=== PATIENT | male | born 1965 | race Caucasian/White ===

== ENCOUNTER → 2017-11-04 13:52 | Outpatient (CLI) | payer MEDICAID, SELFPAY ==
--- NOTE | 2017-11-04 14:00 | XR_ITS ---
EXAM: XR lumbar spine min 4V HISTORY: ITS.REASON: BACK PAIN ORDERING PHYSICIAN: Live Singer MD PATIENT AGE: 52 years COMPARISON: None FINDINGS: Normal alignment. No fracture or dislocation. No lytic or blastic change. There is mild degenerative disc disease at L5-S1. Small endplate osteophytes are present at every level. Degenerative disc disease is also present in the lower thoracic spine. IMPRESSION: Lower thoracic and lumbosacral degenerative disc disease
--- NOTE | 2017-11-04 14:00 | XR_ITS ---
EXAM: XR thoracic spine 3V HISTORY: ITS.REASON: BACK PAIN Comparison: None FINDINGS: There is mild degenerative disc disease in the mid and lower thoracic spine. Endplate osteophytes are present. No fracture or dislocation. No lytic or blastic change. There is slight decrease in height T7 vertebral body stable from 6-14. IMPRESSION: No acute finding. Thoracic spondylosis with degenerative disc disease and small endplate BI-RADS
== END ==
PROVIDERS: PCP Family Medicine; Visit Provider Family Medicine
DX: M54.5 Low back pain (principal); M54.6 Pain in thoracic spine
CPT/HCPCS: 72072; 72110

== ENCOUNTER → 2017-11-12 08:42 | Outpatient (CLI) | payer MEDICAID, SELFPAY ==
[2017-11-12 09:17] LABS: Hemoglobin A1C 6.2 % (0.0-7.0)
[2017-11-12 10:50] LABS: Alanine Aminotransferase 28 U/L (12-78); Albumin Level 3.8 gm/dL (3.4-5.0); Albumin/Globulin Ratio 1.1 (1.1-1.8); Alkaline Phosphatase 69 U/L (46-116); Anion Gap 12.3 mEq/L (5-15); Aspartate Amino Transferase 19 U/L (15-37); Bilirubin,Total 0.3 mg/dL (0.2-1.0); Blood Urea Nitrogen 19 mg/dL (7-18); Calcium 9.1 mg/dL (8.5-10.1); Carbon Dioxide 27 mmol/L (21.0-32.0); Chloride 110 mmol/L (98-107); Chol/HDL Ratio 4.8 (1-3.5); Cholesterol 184 mg/dL (140-200); Creatinine,Serum 1.05 mg/dL (0.70-1.30); Estimated Glomerular Filt Rate 74 ml/min (>60); GFR (African American) 89 ML/MIN (>60); Globulin 3.6 gm/dl (1.3-3.2); Glucose 112 mg/dL (74-106); HDL Cholesterol 38 mg/dL (27-67); LDL Cholesterol 108 mg/dL (0-130); Potassium 5.3 mmoL/L (3.5-5.1); Sodium 144 mmol/L (136-145); Total Protein,Serum 7.4 gm/dL (6.4-8.2); Triglycerides 192 mg/dL (30-200); VLDL Cholesterol 38 mg/dL (0-40)
== END ==
PROVIDERS: Visit Provider Family Medicine
DX: E11.9 Type 2 diabetes mellitus without complications (principal); R82.2 Biliuria
CPT/HCPCS: 36415; 80053; 80061; 83036

== ENCOUNTER → 2018-06-17 10:17 | Outpatient (CLI) | payer MEDICAID, SELFPAY ==
[2018-06-17 12:33] LABS: Alanine Aminotransferase 30 U/L (12-78); Albumin Level 3.9 gm/dL (3.4-5.0); Albumin/Globulin Ratio 1.1 (1.1-1.8); Alkaline Phosphatase 65 U/L (46-116); Anion Gap 15.2 mEq/L (5-15); Aspartate Amino Transferase 18 U/L (15-37); Bilirubin,Total 0.5 mg/dL (0.2-1.0); Blood Urea Nitrogen 24 mg/dL (7-18); Carbon Dioxide 26 mmol/L (21.0-32.0); Chloride 103 mmol/L (98-107); Chol/HDL Ratio 4.7 (1-3.5); Cholesterol 204 mg/dL (140-200); Creatinine,Serum 0.99 mg/dL (0.70-1.30); Estimated Glomerular Filt Rate 79 ml/min (>60); GFR (African American) 96 ML/MIN (>60); Globulin 3.7 gm/dl (1.3-3.2); Glucose 100 mg/dL (74-106); HDL Cholesterol 43 mg/dL (27-67); LDL Cholesterol 130 mg/dL (0-130); Potassium 4.2 mmoL/L (3.5-5.1); Sodium 140 mmol/L (136-145); Total Protein,Serum 7.6 gm/dL (6.4-8.2); Triglycerides 154 mg/dL (30-200); VLDL Cholesterol 31 mg/dL (0-40)
[2018-06-17 14:25] LABS: Hemoglobin A1C 6.4 % (0.0-7.0)
== END ==
PROVIDERS: Visit Provider Family Medicine
DX: E11.9 Type 2 diabetes mellitus without complications (principal); I10 Essential (primary) hypertension
CPT/HCPCS: 36415; 80053; 80061; 83036

== ENCOUNTER 2020-06-13 11:48 | Emergency (ER) | payer OTHER, SELFPAY ==
[2020-06-13 11:49] VITALS: BP 153/103; PULSE 95; RESP 20; TEMP 37; O2SAT 98; BMI 39.1
--- NOTE | 2020-06-13 11:58 | XR_ITS ---
PROCEDURE: XR SHOULDER LT MIN 2V CLINICAL INDICATION: fell this morning Posttraumatic pain COMPARISON: No exams were available for comparison FINDINGS: Osteoarthritic changes are present at the acromioclavicular joint and glenohumeral joint. Hypertrophic changes are present at the greater tuberosity. No acute fracture or dislocation. Other findings:There is subacromial stenosis. IMPRESSION: Degenerative changes with subacromial stenosis Dictated by: Phill Garcia MD 06/13/2020 15:32 Phill Garcia MD in [facility] 06/13/2020 15:32
--- NOTE | 2020-06-13 11:59 | HMH.EDUPEXT ---
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 The time I documented below is in addition to time spent performing reported procedures but includes the following listed in this critical care notation. Medical Decision Making - Medical Records Medical records reviewed: Yes: I reviewed the patient's medical records. - Lavell Inquiry Pt receiving controlled substance: No Vital Signs: 06/13/20 11:49 Temperature 98.6 F Temperature Source Oral Pulse Rate [Left Radial] 95 H Respiratory Rate 20 Blood Pressure [Right Arm] 153/103 H Blood Pressure Mean [Right Arm] 119 Blood Pressure Source [Right Arm] Automatic Cuff Blood Pressure Position [Right Arm] Sitting 02 Sat by Pulse Oximetry 98 Oxygen Delivery Method Room Air Orders (Tests/Meds): ORDERS Category Date Time Status Shoulder XR left minimum 2 views [XR shoulder LT min 2V Exams 06/13/20 11:58 Taken ] Stat - Radiology Data #1 Image(s): Shoulder Image Reviewed: Yes I reviewed the patient's radiology results, Yes I reviewed the patient's radiology image Preliminary Findings: Normal/NAD Arthritis, no acute fracture Medical Decision Narrative: Patient is neurovascularly intact in the left upper extremity. X-ray shows arthritis, no acute fracture or dislocation. Recommended anti-inflammatories and follow-up with PCP in 2 to 3 days for reevaluation. Upper Extremity HPI - General Chief Complaint: Extremity Injury, Upper Stated Complaint: A/o 06/13 left shoulder injury Time Seen by Provider: 06/13/20 11:59 Mode of Arrival: Ambulatory Source of Information: Patient Limitations: No Limitations Description of Symptoms (Recalled from ER Triage Doc. by RN): c/o left arm pain after a fall this morning on the ice. Denies any other injuries at this time. - History of Present Illness HPI narrative: This is a 54-year-old [id number] male who presents to the emergency department for evaluation of left shoulder pain near the AC joint. He started feeling this pain about a month and a half ago after moving a piece of furniture, but states it became worse today when he slipped on some ice and fell backwards striking his shoulder on the ice. No other injuries from the fall and no head injury. The pain radiates from the tip of the left shoulder up towards his neck. No numbness, tingling, weakness distally. No elbow, forearm, wrist pain. Any movement makes the pain worse. He took some Tylenol at home which has helped somewhat. - Related Data Home Medications Medication Instructions Recorded Confirmed Fexofenadine HCl [Virgen Allergy] 60 mg PO DAILY 11/03/17 11/03/17 Montelukast Sodium [Montelukast 10 mg PO HS 11/03/17 11/03/17 10mg Tab] lisinopriL [Lisinopril 20mg Tab] 20 mg PO DAILY 11/03/17 11/03/17 Allergies Allergy/AdvReac Type Severity Reaction Status Date / Time No Known Allergies Allergy Verified 11/03/17 15:07 [facility] History - Hepatitis A Screen Drug use history?: No High risk sexual behaviors?: No History of sexually transmitted infection?: No Currently employed?: No Childcare worker?: No Do you have indoor plumbing?: Yes Do you have electricity?: Yes Attestation statement:: This patient has been screened for Hepatitis A risk factors. I have reviewed the patient's past m
[2020-06-13 12:54] VITALS: BP 149/98; PULSE 94; RESP 20; TEMP 37; O2SAT 98
== END 2020-06-13 12:59 | disposition home or self-care (01) ==
PROVIDERS: Emergency Provider Emergency Medicine; PCP Family Medicine
DX: M25.512 Pain in left shoulder (principal); M19.012 Primary osteoarthritis, left shoulder; W00.0XXA Fall on same level due to ice and snow, initial encounter; Y92.019 Unspecified place in single-family (private) house as the place of occurrence of the external cause; I10 Essential (primary) hypertension
CPT/HCPCS: 73030; 99282

== ENCOUNTER → 2020-07-25 12:32 | Outpatient (CLI) | payer OTHER, SELFPAY | PROVIDERS: PCP Family Medicine; Visit Provider Family Medicine | DX: M25.512 Pain in left shoulder (principal) ==

== ENCOUNTER 2021-04-26 04:55 | Emergency (ER) | payer OTHER, SELFPAY ==
[2021-04-26 04:56] VITALS: BP 113/68; PULSE 106; RESP 18; TEMP 37.3; O2SAT 96; BMI 38.3
--- NOTE | 2021-04-26 05:03 | XR_ITS ---
PROCEDURE INFORMATION: Exam: XR Chest Exam date and time: 04/26/2021 5:03 AM Age: 55 years old Clinical indication: Cough TECHNIQUE: Imaging protocol: XR of the chest. Views: 2 views. COMPARISON: CR CXR2V XR chest 2V 11/03/2017 3:16 PM FINDINGS: Lungs: Central opacities with peribronchial cuffing, seen to advantage on the lateral chest radiograph suggest viral process versus reactive airways without convincing consolidation. Pleural spaces: Unremarkable. No pleural effusion. No pneumothorax. Heart/Mediastinum: Unremarkable. No cardiomegaly. Bones/joints: Unremarkable. IMPRESSION: Central opacities with peribronchial cuffing, seen to advantage on the lateral chest radiograph suggest viral process versus reactive airways without convincing consolidation.
[2021-04-26 05:09] LABS: Influenza A, PCR Not Detected (NotDetected); Influenza B, PCR Not Detected (NotDetected)
[2021-04-26 05:24] LABS: Basophils # 0.1 K/mm3 (0-0.2); Basophils % 1.4 % (0.1-2.0); Eosinophils # 0.1 K/mm3 (0.0-0.4); Eosinophils % 0.5 % (0.1-12.0); Hematocrit 40.1 % (42.0-52.0); Hemoglobin 12.8 g/dL (14.1-18.0); Lymphocytes # 1.3 K/mm3 (0.7-4.5); Lymphocytes % 14.1 % (10-50); Mean Corpuscular HGB Conc 32.1 g/dL (31.8-35.4); Mean Corpuscular Hemoglobin 28.7 pg (27.0-31.2); Mean Corpuscular Volume 89.4 fl (80-94); Mean Platelet Volume 8.1 fl (7.4-10.4); Monocytes # 1.2 K/mm3 (0.1-1.0); Monocytes % 12.7 % (1.7-9.3); Neutrophils # 6.8 K/mm3 (1.8-7.8); Neutrophils % 71.2 % (37.0-80.0); Platelet Count 264 K/mm3 (142-424); Red Blood Count 4.48 M/mm3 (4.60-6.20); Red Cell Distribution Width 13.5 % (11.5-17.5); White Blood Count 9.5 K/mm3 (4.8-10.8)
[2021-04-26 05:26] LABS: Coronavirus 19, PCR Detected (NotDetected)
[2021-04-26 05:35] LABS: Alanine Aminotransferase 21 U/L (12-78); Albumin Level 4.2 g/dl (3.5-5.0); Albumin/Globulin Ratio 1.4 (1.1-1.8); Alkaline Phosphatase 73 U/L (38-126); Anion Gap 14.1 mEq/L (5-15); Aspartate Amino Transferase 32 U/L (17-59); Bilirubin,Total 0.3 mg/dl (0.2-1.3); Blood Urea Nitrogen 19 mg/dl (9-20); Calcium 8.7 mg/dl (8.4-10.2); Carbon Dioxide 25 mmol/L (22.0-30.0); Chloride 102 mmol/L (98-107); Creatinine Clearance Estimated 130 mL/min (50-200); Estimated Glomerular Filt Rate 77 ml/min (>60); GFR (African American) 94 ML/MIN (>60); Globulin 3.1 g/dL (1.3-3.2); Glucose 125 mg/dl (74-100); Potassium 4.1 mmoL/L (3.5-5.1); Sodium 137 mmol/L (136-145); Total Protein,Serum 7.3 g/dl (6.3-8.2)
[2021-04-26 05:40] LABS: C-Reactive Protein 22.6 mg/L (0-4)
[2021-04-26 05:54] LABS: Procalcitonin 0.077 ng/mL (0.0-2.0)
[2021-04-26 06:09] LABS: Erythrocyte Sedimentation Rate 31 mm/hr (0-20)
--- NOTE | 2021-04-26 06:19 | HMH.EDURI ---
ED Disposition Clinical Impression: COVID-19 Disposition: Home, Self-Care Condition on Discharge: Good Instructions: DI for COVID-19 (Suspected or Confirmed ) Additional Instructions: fluids and see pcp for follow up Referrals: Live Singer MD [Primary Care Provider] - - Critical Care Critical Care Time: No Attestation: On 04/26/21, the high probability of a clinically significant, sudden or life threatening deterioration of the following system(s) required my full and direct attention, intervention and personal management. The time I documented below is in addition to time spent performing reported procedures but includes the following listed in this critical care notation. Medical Decision Making - Medical Records Medical records reviewed: Yes: I reviewed the patient's medical records. - Lavell Inquiry Pt receiving controlled substance: No Vital Signs: 04/26/21 04:56 Temperature 99.2 F Temperature Source Oral Pulse Rate [Right] 106 H Respiratory Rate 18 Blood Pressure [Right Arm] 113/68 Blood Pressure Mean [Right Arm] 83 02 Sat by Pulse Oximetry 96 Oxygen Delivery Method Room Air - Lab Data Lab results reviewed: Yes: I reviewed the patient's lab results. Lab Results 04/26/21 05:01: SARS-CoV-2 (PCR) Detected A, Influenza A Untype (PCR) Not detected, Influenza Type B (PCR) Not detected 04/26/21 05:18: WBC 9.5, RBC 4.48 L, Hgb 12.8 L, Hct 40.1 L, MCV 89.4, MCH 28.7, MCHC 32.1, RDW 13.5, Plt Count 264, MPV 8.1, Neut % (Auto) 71.2, Lymph % (Auto) 14.1, Mills % (Auto) 12.7 H, Eos % (Auto) 0.5, Baso % (Auto) 1.4, Neut # (Auto) 6.8, Lymph # (Auto) 1.3, Mills # (Auto) 1.2 H, Eos # (Auto) 0.1, Baso # (Auto) 0.1, ESR 31 H 04/26/21 05:18: Sodium 137, Potassium 4.1, Chloride 102, Carbon Dioxide 25, Anion Gap 14.1, BUN 19, Creatinine 1.00, Estimated Creat Clear 130, Estimated GFR 77, Est GFR ( Amer) 94, Glucose 125 H, Calcium 8.7, Total Bilirubin 0.3, AST 32, ALT 21, Alkaline Phosphatase 73, C-Reactive Protein 22.6 H, Total Protein 7.3, Albumin 4.2, Globulin 3.1, Albumin/Globulin Ratio 1.4, Procalcitonin 0.077 Result diagrams: 04/26/21 05:18 04/26/21 05:18 Orders (Tests/Meds): ED MEDICATIONS Generic Name Dose Route Start Last Admin Trade Name Freq PRN Reason Stop Dose Admin Sodium Chloride 1,000 mls @ 999 mls/hr 04/26/21 05:15 04/26/21 05:22 Sod Chlor 0.9% 1000ml Bag IV 04/26/21 06:15 999 mls/hr .Q1H1M SANTINO Administration Discontinued Medications Generic Name Dose Route Start Last Admin Trade Name Freq PRN Reason Stop Dose Admin Methylprednisolone Sodium Succinate 125 mg 04/26/21 05:15 04/26/21 05:22 Methylprednisolone Sod Succ 125mg Vial IV 04/26/21 05:16 125 mg ONCE ONE Administration - Radiology Data #1 Image(s): Chest Image Reviewed: Yes I have reviewed radiologist's interpretation Preliminary Findings: Abnormal Medical Decision Narrative: has uri sx with cough and has covid-19 URI/Sore Throat HPI - General Chief Complaint: Upper Respiratory Infection Stated Complaint: cough Time Seen by Provider: 04/26/21 06:00 Mode of Arrival: Ambulatory Source of Information: Patient, Medical Record Limitations: No Limitations Description of Symptoms (Recalled from ER Triage Doc. by RN): pt reports a cough since wednesday and states its just gotten worse pretty sure its bronchitis - History of Present Illness HPI Narrative: uri sx and cough over the last few days MD Complaint: cough, nasal congestion Onset (ago): day(s) Duration: intermittent Severity: moderate Able to tolerate fluids by mouth: Yes Associated symptoms: denies other symptoms Treatments prior to arrival: none - Related Data Home Medications Medication Instructions Recorded Confirmed Montelukast Sodium [Montelukast 10 mg PO HS 11/03/17 04/26/21 10mg Tab] Losartan Potassium [Cozaar 100mg 100 mg PO DAILY 04/26/21 04/26/21 Tablets] Phentermine HCl 15 mg P
[2021-04-26 06:33] VITALS: BP 113/68; PULSE 89; RESP 18; TEMP 37.2; O2SAT 98
== END 2021-04-26 06:35 | disposition home or self-care (01) ==
PROVIDERS: Emergency Provider Emergency Medicine; PCP Family Medicine
DX: U07.1 COVID-19 (principal)
CPT/HCPCS: 71046; 80053; 84145; 85025; 85651; 86140; 99283; C9803; U0003; U0005

== ENCOUNTER 2021-05-01 12:27 | Emergency (ER) | payer OTHER, SELFPAY ==
[2021-05-01 13:27] VITALS: BP 104/71; RESP 18; TEMP 36.8; O2SAT 98; BMI 38.0
--- NOTE | 2021-05-01 13:32 | XR_ITS ---
PROCEDURE: XR CHEST 2V CLINICAL HISTORY: covid COMPARISON: CR CXR CHEST(2 VIEWS-NOT PORTABLE) from 10/02/2013 CR CXR2V XR chest 2V from 11/03/2017 CR XR CHEST 2V from 04/26/2021 FINDINGS: The cardiomediastinal silhouette and pulmonary vascularity are within normal limits. The lungs are clear without infiltrates, suspicious nodules, or pleural effusions. No acute bony abnormalities. IMPRESSION: No acute findings. Dictated by: Phill Garcia MD 05/01/2021 14:14 Phill Garcia MD in [place] 05/01/2021 14:14
--- NOTE | 2021-05-01 13:44 | PC.NURSE ---
Called RAD for chest xray spoke with connie
--- NOTE | 2021-05-01 14:44 | HMH.EDGENADL ---
ED Disposition Clinical Impression: Viral infection, COVID-19 Disposition: Home, Self-Care Condition on Discharge: Good Instructions: DI for COVID-19 (Suspected or Confirmed ) Additional Instructions: Please follow up with your primary care team via telehealth for further management. Please continue to drink plenty of water and eat 3 balanced meals. Please return to the ED if symptoms do not improve, chest pain, difficulty breathing or any other worsening symptoms. Recommend to self quarantine until symptoms resolve. Referrals: Live Singer MD [Primary Care Provider] - Time of Disposition: 11:00 - Critical Care Critical Care Time: No Attestation: On 05/01/21, the high probability of a clinically significant, sudden or life threatening deterioration of the following system(s) required my full and direct attention, intervention and personal management. The time I documented below is in addition to time spent performing reported procedures but includes the following listed in this critical care notation. Medical Decision Making - Medical Records Medical records reviewed: Yes: I reviewed the patient's medical records. - Lavell Inquiry Pt receiving controlled substance: No Vital Signs: 05/01/21 13:27 05/01/21 15:01 Temperature 98.3 F 98.5 F Temperature Source Oral Oral Pulse Rate 96 H Respiratory Rate 18 16 Blood Pressure 110/74 Blood Pressure [Right Arm] 104/71 L Blood Pressure Mean [Right Arm] 82 Blood Pressure Source Automatic Cuff Blood Pressure Source [Right Arm] Automatic Cuff Blood Pressure Position Sitting Blood Pressure Position [Right Arm] Supine 02 Sat by Pulse Oximetry 98 Oxygen Delivery Method Room Air Room Air - Lab Data Lab results reviewed: Yes: I reviewed the patient's lab results. Medical Decision Narrative: Mr. Qiu is a 55-year-old male with no significant past medical history who presents to the emergency department with cough, congestion and subjective fevers since being diagnosed with COVID-19. Patient is afebrile and hemodynamically stable on arrival satting well on room air. Patient has no increased work of breathing. Patient's lungs are equal bilaterally with no wheezing, rales or rhonchi. Patient otherwise well-appearing. Bedside chest x-ray shows no concomitant pneumonia present. Patient is given Tylenol and ibuprofen for comfort and informed to follow-up with his primary care physician via telehealth for further management. Patient is instructed to continue quarantining until asymptomatic. Patient is discharged in stable condition. General Adult HPI - General Chief complaint: Upper Respiratory Infection Stated complaint: cough,congestion,body aches Time Seen by Provider: 05/01/21 13:35 Mode of Arrival: Ambulatory Source of Information: Patient Limitations: No Limitations Description of Symptoms (Recalled from ER Triage Doc. by RN): Pt stated that he was covid positive and has had congestion and cough. He has been unable to stop coughing. - History of Present Illness HPI narrative: Mr. Qiu is a 55 yo male w/ no significant PMH who presents to the ED for cough, congestion, known COVI D+. Pt stated that he was covid positive 5 days prior and has had increased congestion and non productive cough. He also reports subjective fevers. No chest pain, dyspnea, dizziness, bowel changes or urinary sx. Denies any other sx. Not vaccinated. - Related Data Home Medications Medication Instructions Recorded Confirmed Montelukast Sodium [Montelukast 10 mg PO HS 11/03/17 04/26/21 10mg Tab] Losartan Potassium [Cozaar 100mg 100 mg PO DAILY 04/26/21 04/26/21 Tablets] Phentermine HCl 15 mg PO DAILY 04/26/21 04/26/21 Allergies Allergy/AdvReac Type Severity Reaction Status Date / Time No Known Allergies Allergy Verified 11/03/17 15:07 [facility] History - Hepatitis A Screen Drug use history?: No High risk sexual behaviors?: No History of sex
[2021-05-01 15:01] VITALS: BP 110/74; PULSE 96; RESP 16; TEMP 36.9; O2SAT 97
== END 2021-05-01 15:02 | disposition home or self-care (01) ==
PROVIDERS: Emergency Provider Student in an Organized Health Care Education/Training Program; PCP Family Medicine
DX: U07.1 COVID-19 (principal); B34.9 Viral infection, unspecified
CPT/HCPCS: 71046; 99282

== ENCOUNTER 2023-05-03 19:23 | Emergency (ER) | payer OTHER, SELFPAY ==
[2023-05-03 19:30] VITALS: BP 135/75; PULSE 88; RESP 20; TEMP 37.1; O2SAT 96; BMI 38.9
--- NOTE | 2023-05-03 19:37 | EXP.UTC ---
Discharge Plan Disposition Patient Disposition: Home, Self-Care Condition: Good Prescriptions Prescriptions: New azithromycin [Zithromax Z-Chandana] 250 mg tablet See Rx Instructions .ROUTE .COMPLEX 5 Days Qty: 6 0RF Rx Instructions: For 250 mg dose pack: take 500 mg today (day 1), then 250 mg for 4 days (days 2-5) benzonatate 100 mg capsule 100 mg PO TID PRN (Reason: cough) Qty: 30 0RF methylprednisolone [Medrol (Chandana)] 4 mg tablets,dose pack See Rx Instructions .Route .COMPLEX 6 Days Qty: 21 0RF Rx Instructions: taper pack; guaifenesin [Mucinex] 600 mg tablet extended release 12hr 1,200 mg PO BID PRN (Reason: cough) Qty: 20 0RF No Action losartan 100 MG tablet 100 mg PO DAILY Referrals Follow up/Referrals: Live Singer MD [Primary Care Provider] - See instructions Activity Restrictions/Add. Instructions Additional Instructions/Restrictions: Start antibiotic today. Be sure to complete entire prescription even if feeling better Monitor temp. Tylenol every 4 hours as needed and / or ibuprofen every 6 hours as needed ( As long as your primary care physician has told you that it ok to take both. For fever/aches/pains ER if no less than 101 despite Tylenol or Motrin Humidifier/vaporizer or hot steamy shower Mucinex during the day for your cough and cough suppressant only at night. Be sure to drink lots of water. *Tessalon Perles will not cause drowsiness but use at bedtime to help stop cough so that you may get some rest. *Start steroid today. Helps with inflammation therefore, cough and wheezing. Follow directions on the package. Reviewed side effects. Patient reports taking them before. Follow up IMMEDIATELY for new or worsening of symptoms OR no noticeable improvement over the next 48-72 hours. 911 immediately for any life threatening symptoms such as chest pain or difficulty breathing Clinical Impressions Clinical Impression: Bronchitis Sinusitis Qualifiers: Sinusitis location: unspecified location Chronicity: unspecified Qualified Code(s): J32.9 - Chronic sinusitis, unspecified Instructions Patient Instructions: DI for Sinusitis, Sinusitis, Acute Bronchitis Discharge ED Provider: Dori Lewis [facility] General Stated complaint: cough, congestion Mode of Arrival: Ambulatory Source of Information: Patient Limitations: No Limitations Time Seen by Provider: 05/03/23 19:37 Description of Symptoms (Recalled from Triage Doc. by RN): PATIENT C/O COUGH, SNEEZING, AND PAIN IN CHEST WHEN COUGHING X 4 DAYS HEENT Symptoms (Recalled from RN notes): Yes Resp Symptoms (Recalled from RN notes): Yes Skin Symptoms (Recalled from RN notes): No MS Symptoms (Recalled from RN notes): No Functional Status (Recalled from RN notes): WNL History of Present Illness Provider Complaint: Patient states that he has been having sinus congestion and pressure on and off for about a month States that for the last 4 days it has got worse States that he has been having coughing, sneezing, sinus congestion/pressure and hurts at times when he coughs States that he is not coughing anything up States that this evening his cough was bothering him so he came in to get checked and get something for the cough Related Data Home Medications Medication Instructions Recorded Confirmed losartan 100 mg tablet 100 mg PO DAILY Hypertension 04/26/21 05/03/23 Previous Rx's Medication Instructions Recorded azithromycin 250 mg tablet See Rx Instructions PO .COMPLEX 5 05/03/23 (Zithromax Z-Chandana) days #6 tabs benzonatate 100 mg capsule 100 mg PO TID PRN cough #30 caps 05/03/23 guaifenesin 600 mg tablet, 1,200 mg PO BID PRN cough #20 tabs 05/03/23 extended release 12 hr (Mucinex) methylprednisolone 4 mg tablets in See Rx Instructions .Route 05/03/23 a dose pack (Medrol (Chandana)) .COMPLEX 6 days #21 tabs Allergies Allergy/AdvReac Type Severity Reaction Status Date / Time No Known Allergies Allergy Verified 11/03/17 15:07 Worker's Comp Is this a Worker's Comp case?: No [facility] Disclaimer: The information contained in this section may have been updated after the patient was seen, as this information can be updated by other users. Medical History (Updated 05/03/23 @ 19:47 by Dori Lewis APRN) Hypertension Social History Smoking Status: Never smoker alcohol intake: never current occupational status: employed Travel in the last 8 weeks: None ROS Obtained: Yes All systems reviewed & no additional complaints except as documented and Yes Systems reviewed as appropriate & no additional complaints except as documented Constitutional Constitutional: Reports system reviewed and no additional complaints, except as documented, Reports as per HPI and Reports headache(s) ENT Ears, Nose, Mouth, and Throat: Reports system reviewed and no additional complaints, except as documented, Reports as per HPI, Reports headache(s), Reports sinus pain and Reports sinus pressure Cardiovascular Cardiovascular: Reports system reviewed and no additional complaints, except as documented and Reports as per HPI Respiratory Respiratory: Reports system reviewed and no additional complaints, except as documented, Reports as per HPI, Denies shortness of breath, Reports chest congestion and Reports cough Gastrointestinal Gastrointestingal: Reports system reviewed and no additional complaints, except as documented and as per HPI Genitourinary Male Genitourinary: Reports system reviewed and no additional complaints, except as documented and Reports as per HPI Musculoskeletal Musculoskeletal: Reports system reviewed and no additional complaints, except as documented and Reports as per HPI Integumentary/Breasts Skin/Breast: Reports system reviewed and no additional complaints, except as documented and Reports as per HPI Neurologic Neurologic: Reports system reviewed and no additional complaints, except as documented, Reports as per HPI and Reports headache(s) Physical Exam General General appearance: alert and in no apparent distress ENT ENT exam: Present mucous membranes moist Expanded ENT Exam Nose exam: Present sinus tenderness Throat exam: Present other (Pharyngeal erythema noted with PND) Respiratory Respiratory exam: Present normal lung sounds bilaterally; Absent respiratory distress or wheezes Cardiovascular Cardiovascular exam: Present regular rate, normal rhythm and normal heart sounds Abdominal Exam Abdominal exam: Present soft and normal bowel sounds; Absent distention or tenderness Neurological Exam Neurological exam: Present alert, oriented X3 and normal gait Medical Decision Making Lavell Inquiry Pt receiving controlled substance: No Lavell was queried for this patient: No Vital Signs: 05/03/23 19:30 Temperature 98.8 F Temperature Source Oral Pulse Rate [Right Brachial] 88 Respiratory Rate 20 Blood Pressure [Right Arm] 135/75 Blood Pressure Mean [Right Arm] 95 Blood Pressure Source [Right Arm] Automatic Cuff Blood Pressure Position [Right Arm] Sitting 02 Sat by Pulse Oximetry 96 Oxygen Delivery Method Room Air
[2023-05-03 19:49] VITALS: BP 135/75; PULSE 88; RESP 20; TEMP 37.1; O2SAT 96
== END 2023-05-03 19:54 | disposition home or self-care (01) ==
PROVIDERS: Emergency Provider Nurse Practitioner; PCP Family Medicine
DX: J20.9 Acute bronchitis, unspecified (principal); J01.90 Acute sinusitis, unspecified; R05.9 Cough, unspecified; R09.81 Nasal congestion; R07.1 Chest pain on breathing; I10 Essential (primary) hypertension
CPT/HCPCS: 99204; 99212; G0463

== ENCOUNTER 2023-08-05 09:51 | Outpatient (CLI) | payer OTHER, SELFPAY ==
--- NOTE | 2023-08-05 09:55 | XR_ITS ---
FINAL REPORT CLINICAL HISTORY: worsening cough x1 month, HBP COMPARISON: 05/01/2021 FINDINGS: Two views of the chest were obtained. The heart size and pulmonary vascularity are within normal limits. The mediastinum is normal. No acute pulmonary abnormality is identified. There is no pneumothorax. The bony thorax is intact. IMPRESSION: No active cardiopulmonary disease. Reviewed, Interpreted and Dictated by Kael Chacon III, MD Transcribed by Stacy Voss Authenticated and [facility]
[2023-08-05 18:00] LABS: Coronavirus 19, PCR Not Detected (NotDetected); Influenza A, PCR Not Detected (NotDetected); Influenza B, PCR Not Detected (NotDetected)
== END 2023-08-05 23:59 ==
LOC: RAD 09:51
PROVIDERS: PCP Student in an Organized Health Care Education/Training Program; Visit Provider Student in an Organized Health Care Education/Training Program
DX: R05.8 Other specified cough (principal)
CPT/HCPCS: 71046; 87636

== ENCOUNTER 2024-04-07 19:21 | Emergency (ER) | payer OTHER, SELFPAY ==
--- NOTE | 2024-04-07 19:26 | XR_ITS ---
PROCEDURE INFORMATION: Exam: XR Left Hand Exam date and time: 04/07/2024 7:22 PM Age: 58 years old Clinical indication: Injury or trauma; Other: Smashed 5th digit; Left; Little finger; Injury details: Laceration of 5th digit, anterior side; Additional info: Smashed pinky while loading gas take into truck TECHNIQUE: Imaging protocol: Radiologic exam of the left hand. Views: 3 or more views. COMPARISON: No relevant prior studies available. FINDINGS: Bones/joints: Avulsion fracture of the tip of the 5th distal phalanx. No additional fracture or dislocation. Soft tissues: Soft tissue swelling involving the 5th finger. IMPRESSION: Avulsion fracture of the tip of the 5th distal phalanx. No additional fracture or dislocation.
[2024-04-07 19:41] VITALS: BP 149/86; PULSE 76; RESP 19; TEMP 36.8; O2SAT 98; BMI 39.1
[2024-04-07] MEDS: TET/DIPHTH/PERT-ADULT 0.5ML SYRINGE 0.5 ML IM (19:46)
--- NOTE | 2024-04-07 20:13 | ED_ITS ---
Discharge Plan Disposition Patient Disposition: Home, Self-Care Condition: Good Prescriptions Prescriptions: New cephalexin 500 mg capsule 500 mg PO QID 10 Days Qty: 40 0RF No Action fexofenadine [Virgen Allergy] 60 mg tablet 60 mg PO BID azithromycin [Zithromax Z-Chandana] 250 mg tablet See Rx Instructions PO .COMPLEX Qty: 6 0RF Rx Instructions: For 250 mg dose pack: take 500 mg today (day 1), then 250 mg for 4 days (days 2-5) PO methylprednisolone 4 mg tablets,dose pack See Rx Instructions PO PER PKG DIR Qty: 21 0RF Rx Instructions: PO PER PKG DIR benzonatate 100 mg capsule 100 mg PO BID PRN (Reason: cough) Qty: 20 0RF albuterol sulfate [Ventolin HFA] 90 mcg/actuation HFA aerosol inhaler 1 inh inhalation QID Qty: 8 2RF guaifenesin [Mucinex] 600 mg tablet extended release 12hr 1,200 mg PO BID PRN (Reason: cough) Qty: 20 0RF losartan 100 MG tablet 100 mg PO DAILY Referrals Follow up/Referrals: Dario Llamas DO [Staff Physician] - See instructions Live Singer MD [Primary Care Provider] - See instructions Activity Restrictions/Add. Instructions Additional Instructions/Restrictions: Keep the wound clean and dry. Keep a dressing on it if you are going to be getting it dirty. Watch the wound for signs of infection, such as redness, swelling, drainage, fever. etc. Take tylenol or ibuprofen for pain. Follow up with your regular doctor. Return in 10 days to have the sutures removed. GO TO THE ER FOR ANY WORSENING SYMPTOMS OR CONCERNS. This is considered an open fracture. Open fractures are at a higher risk to get infected and allow infection to get into your bone. You have to take the antibiotics as prescribed and keep the wound clean. You also have to follow up with orthopedics to make sure the fracture and wound heals properly. I put in a referral to the orthopedic physician (Dr. Llamas). His office phone number will be Clinical Impressions Clinical Impression: Fracture, finger, distal phalanx, open, Need for Tdap vaccination Instructions Patient Instructions: DI for Finger Fracture, DI for Laceration Repair -- Finger, Cephalexin Print Language Print Language: Maori Discharge ED Provider: Neptali James [facility] [place] General Stated complaint: AO 04/07 1700 smashed l pinkie finger cut Mode of Arrival: Ambulatory Source of Information: Patient Time Seen by Provider: 04/07/24 20:13 Description of Symptoms (Recalled from Triage Doc. 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 He has a laceration of the lateral aspect of that finger on the lateral aspect near the tip. His nail in not involved. His tetanus immunization is not up to date. He denies any other injury. He is not a diabetic. Related Data Home Medications ?Medication ?Instructions ?Recorded ?Confirmed losartan 100 mg tablet 100 mg PO DAILY Hypertension 04/26/21 04/07/24 fexofenadine 60 mg tablet (Virgen 60 mg PO BID 08/03/23 08/05/23 Allergy) Previous Rx's ?Medication ?Instructions ?Recorded Ventolin HFA 90 mcg/actuation 1 inh inhalation QID #8 grams 08/03/23 aerosol inhaler (albuterol sulfate) azithromycin 250 mg tablet See Rx Instructions PO .COMPLEX #6 08/03/23 (Zithromax Z-Chandana) tabs benzonatate 100 mg capsule 100 mg PO BID PRN cough #20 caps 08/03/23 methylprednisolone 4 mg tablets in See Rx Instructions PO PER PKG DIR 08/03/23 a dose pack #21 tabs guaifenesin 600 mg tablet, 1,200 mg (2 x 600 mg) PO BID PRN 08/05/23 extended release 12 hr (Mucinex) cough #20 tabs cephalexin 500 mg capsule 500 mg PO QID 10 days #40 caps 04/07/24 Allergies Allergy/AdvReac Type Severity Reaction Status Date / Time No Known Allergies Allergy Verified 08/05/23 08:46 Worker's Comp Is this a Worker's Comp case?: No [facility] Disclaimer: The information contained in this section may have been updated after the patient was seen, as this information can be updated by other users. Medical History Obesity Osteoarthritis COVID-19 Hypertension Surgical History No pertinent past surgical history Family History Family/Other No significant family history Social History Smoking Status: Never smoker alcohol intake: never current occupational status: employed Travel in the last 8 weeks: None ROS Obtained: Yes All systems reviewed & no additional complaints except as documented Constitutional Constitutional: Denies chills and Denies fever(s) Eyes Eyes: Denies eye discharge ENT Ears, Nose, Mouth, and Throat: Denies dizziness, Denies otalgia and Denies sore throat Cardiovascular Cardiovascular: Denies chest pain Respiratory Respiratory: Denies shortness of breath, Denies chest congestion, Denies cough, Denies stridor and Denies wheezing Gastrointestinal Gastrointestingal: Denies nausea or vomiting Musculoskeletal Musculoskeletal: Reports as per HPI and Reports arthralgias Integumentary/Breasts Skin/Breast: Reports as per HPI Neurologic Neurologic: Denies dizziness and Denies paresthesias Allergic/Immunologic Allergic/Immunologic: Denies wheezing Physical Exam General General appearance: alert and in no apparent distress Head Head exam: atraumatic, normocephalic and normal inspection Eye Eye exam: Present normal appearance, PERRL and EOMI ENT ENT exam: Present normal exam, normal oropharynx, mucous membranes moist, TM's normal bilaterally and normal external ear exam Neck Neck exam: Present normal inspection, full ROM and trachea midline; Absent meningismus or lymphadenopathy Chest Chest inspection: Present normal inspection and symmetric chest wall rise; Absent tenderness Respiratory Respiratory exam: Present normal lung sounds bilaterally; Absent respiratory distress Cardiovascular Cardiovascular exam: Present regular rate and normal rhythm; Absent JVD Abdominal Exam Abdominal exam: Present soft and normal bowel sounds; Absent distention, tenderness or guarding Extremities Exam Extremities exam: Present full ROM and normal capillary refill; Absent calf tenderness Expanded Upper Extremity Exam Left: Forearm/Wrist exam: Present normal inspection and full ROM; Absent tenderness Hand exam: Present full ROM, tenderness and laceration; Absent swelling, abrasion, skin avulsion, ecchymosis, deformity, crepitus, dislocation, erythema, amputation, nail avulsion or subungual hematoma Hand L/R front image: 2 1. laceration Neuromotor exam: Normal wrist extension, thumb opposition, thumb IP flexion, thumb adduction and fingers 2-5 abduction Neurosensory exam: Normal radial nerve, ulnar nerve and median nerve Vascular exam: Normal capillary refill, radial pulse and ulnar pulse Back Exam Back exam: Present normal inspection; Absent tenderness Neurological Exam Neurological exam: Present alert and oriented X3 Psychiatric Psychiatric exam: Present normal affect and normal mood Skin Skin exam: Present warm, dry, intact and normal color Lymphatic Lymphatic Findings: no adenopathy Medical Decision Making Medical Records Medical records reviewed: No I reviewed the patient's medical records. Screening: Per USPSTF and CDC recommendations, given the prevalence of disease in our region, it is our hospital?s policy to screen for HIV and viral Hepatitis for all patients aged 18 and over and those with ongoing risk factors. [place] Inquiry Pt receiving controlled substance: No Vital Signs: 04/07/24 19:41 Temperature 98.3 F Temperature Source Oral Pulse Rate [Left Radial] 76 Respiratory Rate 19 Blood Pressure [Left Arm] 149/86 H Blood Pressure Mean [Left Arm] 107 02 Sat by Pulse Oximetry 98 Orders (Tests/Meds): ED MEDICATIONS Generic Name Dose Route Start Last Admin Trade Name Freq PRN Reason Stop Dose Admin Tetanus/Reduced Diphtheria/Acell Pertussis 0.5 ml 04/07/24 19:44 04/07/24 19:46 Tet/Diphth/Pert-Adult 0.5ml Syringe IM 04/07/24 19:45 0.5 ml .ONCE ONE Administration ORDERS Category Date Time Status XR hand LT min 3V Stat Exams 04/07/24 19:26 Completed Radiology Data #1: Image(s): Hand Image Reviewed: Yes I reviewed the patient's radiology image and Yes I have reviewed radiologist's interpretation Preliminary Findings: Abnormal Accession No. : [id number] Patient Name / ID : CLEVELAND MONTE / [id number] Exam Date : 04/07/2024 19:22:31 ( Final ) Study Comment : Sex / Age : M / 58Y Creator : STAR HOLMAN MD Dictator : Registered Nurse Cardiac Telemetry : Analysis Specialist : STAR HOLMAN MD Approver2 : Report Date : 04/07/2024 20:05:24 My Comment : * PROCEDURE INFORMATION: Exam: XR Left Hand Exam date and time: 04/07/2024 7:22 PM Age: 58 years old Clinical indication: Injury or trauma; Other: Smashed 5th digit; Left; Little finger; Injury details: Laceration of 5th digit, anterior side; Additional info: Smashed pinky while loading gas take into truck TECHNIQUE: Imaging protocol: Radiologic exam of the left hand. Views: 3 or more views. COMPARISON: No relevant prior studies available. FINDINGS: Bones/joints: Avulsion fracture of the tip of the 5th distal phalanx. No additional fracture or dislocation. Soft tissues: Soft tissue swelling involving the 5th finger. IMPRESSION: Avulsion fracture of the tip of the 5th distal phalanx. No additional fracture or dislocation. Procedures Risk/Benefits of Procedure(s) Were Explained: Yes Laceration Laceration 1: Site: finger (fifth) Side (If applicable): left Size (cm): 1.5 Description: linear Depth: simple, single layer Local Anesthetic: lidocaine 1% Amount of anesthesia used (mL): 1 Pre-repair: wound explored, irrigated extensively (wound irrigated very extensively with sterile n.s. ) and deep structures intact Skin layer closed with: nylon Size (cm): 5-0 Number of sutures: 7 Technique: simple, interrupted (He tolerated this well. good closure was obtained, the edges were approximated well. )
[2024-04-07] MEDS: cefTRIAXone 1GM VIAL 1 GM IM (20:21)
[2024-04-07] MEDS: LIDOCAINE 1% 5ML PF VIAL IM (20:21)
[2024-04-07 20:29] VITALS: BP 149/86; PULSE 76; RESP 19; TEMP 36.8
== END 2024-04-07 20:31 | disposition home or self-care (01) ==
PROVIDERS: Emergency Provider Nurse Practitioner Family; PCP Family Medicine
DX: S62.607B Fracture of unspecified phalanx of left little finger, initial encounter for open fracture (principal); W23.0XXA Caught, crushed, jammed, or pinched between moving objects, initial encounter
CPT/HCPCS: 12001; 73130; 90471; 90715; 96372; 99214; G0382; J0696

== ENCOUNTER 2024-06-28 19:30 | Outpatient (CLI) | payer OTHER, SELFPAY ==
[2024-06-28 21:31] LABS: Coronavirus 19, PCR Not Detected (NotDetected); Influenza A, PCR Not Detected (NotDetected); Influenza B, PCR Not Detected (NotDetected)
== END 2024-06-28 23:59 | disposition home or self-care (01) ==
LOC: LAB.DROPOF 06-29 15:03
PROVIDERS: PCP Student in an Organized Health Care Education/Training Program; Visit Provider Student in an Organized Health Care Education/Training Program
DX: R05.9 Cough, unspecified (principal); J06.9 Acute upper respiratory infection, unspecified
CPT/HCPCS: 87636

== ENCOUNTER 2024-08-04 08:35 | Outpatient (CLI) | payer OTHER, SELFPAY ==
--- NOTE | 2024-08-04 08:40 | XR_ITS ---
FINAL REPORT CLINICAL HISTORY: COUGH x 1 month no sx , nonsmoker COMPARISON: 05/01/2021 FINDINGS: No acute pulmonary density is evident. There is no evidence of effusion or other pleural disease. The mediastinum has a normal appearance. The cardiac silhouette is unremarkable. IMPRESSION: Unremarkable chest exam. Reviewed, Interpreted and Dictated by Jh Brown MD Transcribed by Janet Harmon Authenticated and [facility]
== END 2024-08-04 23:59 | disposition home or self-care (01) ==
LOC: LAB 08:36 → RAD 08:39
PROVIDERS: PCP Family Medicine; Visit Provider Family Medicine
DX: R05.3 Chronic cough (principal)
CPT/HCPCS: 71046